=== PATIENT | female | born 1980 | race Caucasian/White ===

== ENCOUNTER 2016-04-10 19:13 | Emergency (ER) | payer BC ==
[~2016-04-10] VITALS: Ht 180.3 cm; Wt 72.3 kg
[~2016-04-10 19:13] MED LIST: ALEVE220 MG PO; BACTROBAN NASAL1 G1 BOTH NARES; CEFTIN500 MG PO; CHLORDIAZEPOXID25 MG PO; DAILY VITAMIN1 EAC8 PO; EFFEXOR75 MG PO; EXCEDRIN MIGRA1 EAC3 PO; FLUOXETINE HCL20 MG PO; FOLIC ACID1 MG PO; KEPPRA500 MG PO; LIBRIUM25 MG PO; THIAMINE HCL100 MG PO; VALACYCLOVIR1000 MG PO; VITAMIN B-1100 MG PO
[2016-04-10 20:17] LABS: HEMATOCRIT 38.5 % (36.0-46.0); MCHC 35.8 G/DL (30.0-36.0); MCV 89.3 FL (83-99); MEAN PLAT.VOLUME 9.6 uM^3 (9.5-12.4); PLATELET COUNT 204 K/uL (156-360); RBC DIS.WIDTH-CV 11.2 % (11.8-14.6); RBC DIS.WIDTH-SD 35.6 % (39-53); RED BLOOD COUNT 4.31 M/uL (3.80-5.20); WHITE BLOOD COUNT 9.8 K/uL (4.1-10.2)
[2016-04-10 20:24] LABS: CHLORIDE 100 mEq/L (99-109); POTASSIUM 3.4 mEq/L (3.7-5.4); SODIUM 136 mEq/L (136-147)
[2016-04-10 20:26] LABS: GLUCOSE 137 mg/dL (70-99)
[2016-04-10 20:27] LABS: ANION GAP 13 MEQ/L (2-14)
[2016-04-10 20:30] LABS: GFR ESTIMATE (CALCULATED) > 59 mL/min/; UREA NITROGEN (BUN) 12 mg/dL (9-23)
[2016-04-10] MEDS ORDERED: LIBRIUM25 MG PO (21:43)
[2016-04-10 22:09] VITALS: BP 148/106
== END 2016-04-10 22:10 | disposition home or self-care (01) ==
LOC: EME 19:13 → RME 19:13
DX: F10.239 Alcohol dependence with withdrawal, unspecified (principal); R56.9 Unspecified convulsions; F17.200 Nicotine dependence, unspecified, uncomplicated
CPT/HCPCS: 80048; 85027; 93005; 99281; 99284

== ENCOUNTER 2017-02-23 20:49 | Emergency (ER) | payer OTHER ==
[~2017-02-23] VITALS: Ht 180.3 cm; Wt 74.5 kg
[2017-02-23 21:13] LABS: HEMATOCRIT 45.7 % (36.0-46.0); HEMOGLOBIN 16.5 G/DL (11.9-15.5); MCH 32.9 PG (29.0-34.0); MCHC 36.1 G/DL (30.0-36.0); MCV 91.2 FL (83-99); PLATELET COUNT 264 K/uL (156-360); RBC DIS.WIDTH-CV 11.7 % (11.8-14.6); RED BLOOD COUNT 5.01 M/uL (3.80-5.20); WHITE BLOOD COUNT 26.6 K/uL (4.1-10.2)
[2017-02-23 21:21] LABS: ALBUMIN 3.4 g/dL (3.2-4.8); CHLORIDE 94 mEq/L (99-109); POTASSIUM 3.9 mEq/L (3.7-5.4); SODIUM 130 mEq/L (136-147)
[2017-02-23 21:23] LABS: GLUCOSE 180 mg/dL (70-99)
[2017-02-23 21:24] LABS: TOTAL PROTEIN 7.8 g/dL (6.4-8.3)
[2017-02-23 21:27] LABS: ALKALINE PHOSPHATASE 135 IU/L (3-129); CREATININE 0.9 mg/dL (0.6-1.3); GFR ESTIMATE (CALCULATED) > 59 mL/min/
[2017-02-23 21:28] LABS: UREA NITROGEN (BUN) 17 mg/dL (9-23)
[2017-02-23 21:29] LABS: AST (GOT) 273 IU/L (2-34)
[2017-02-23 21:30] LABS: ALT (GPT) 159 IU/L (3-49)
[2017-02-23 21:35] LABS: QUANTITATIVE HCG < 4.0 MIU/ML
[2017-02-23 22:24] LABS: APPEARANCE CLOUDY ((CLEAR)); BILIRUBIN SMALL; BLOOD NEGATIVE; GLUCOSE (STRIP) NEGATIVE; KETONES 5; LEUKOCYTES NEGATIVE; NITRITE NEGATIVE; PROTEIN (STRIP) 30; SPECIFIC GRAVITY 1.028 (1.000-1.030)
[2017-02-23 22:25] LABS: COLOR AMBER ((YELLOW))
[2017-02-23 22:30] LABS: LIPASE 874 U/L (1.0-51.0)
[2017-02-23 22:40] LABS: BACTERIA RARE /HPF; EPITHELIAL CELLS 4+ /HPF; HYALINE CASTS TNTC /LPF; MUCUS 4+ /LPF; RED BLOOD CELLS 0-5 /HPF (0-5); UCUL ADDED? NO; WHITE BLOOD CELLS 0-5 /HPF (0-5)
[2017-02-24] MEDS ORDERED: NORCO 5/3251 TABLET PO (00:28)
[2017-02-24] MEDS ORDERED: ATIVAN2 MG PO (00:28)
[2017-02-24 01:12] VITALS: BP 127/74
== END 2017-02-24 01:13 | disposition home or self-care (01) ==
LOC: EME 20:49
DX: K85.20 Alcohol induced acute pancreatitis without necrosis or infection (principal); R10.11 Right upper quadrant pain; E86.0 Dehydration; F10.239 Alcohol dependence with withdrawal, unspecified; Y90.9 Presence of alcohol in blood, level not specified; Z87.440 Personal history of urinary (tract) infections; F32.9 Major depressive disorder, single episode, unspecified; R56.9 Unspecified convulsions
CPT/HCPCS: 76705; 80053; 81003; 83690; 84702; 85027; 99281; 99285; J0780; J2060; J7040

== ENCOUNTER 2017-03-02 12:57 | Emergency (ER) | payer OTHER ==
[~2017-03-02] VITALS: Ht 177.8 cm; Wt 79.4 kg
[~2017-03-02 12:57] MED LIST changes: +ATIVAN2 MG PO; +NORCO 5/3251 TABLET PO
[2017-03-02 13:50] LABS: HEMATOCRIT 28.2 % (36.0-46.0); HEMOGLOBIN 9.5 G/DL (11.9-15.5); MCH 32.4 PG (29.0-34.0); MCHC 33.7 G/DL (30.0-36.0); MCV 96.2 FL (83-99); PLATELET COUNT 471 K/uL (156-360); RBC DIS.WIDTH-CV 11.9 % (11.8-14.6); RBC DIS.WIDTH-SD 42.1 % (39-53); RED BLOOD COUNT 2.93 M/uL (3.80-5.20); WHITE BLOOD COUNT 19.6 K/uL (4.1-10.2)
[2017-03-02 14:01] LABS: CHLORIDE 95 MEQ/L (99-109); POTASSIUM 3.8 MEQ/L (3.7-5.4); SODIUM 135 MEQ/L (136-147); TOTAL BILIRUBIN 0.8 MG/DL (0.0-1.0)
[2017-03-02 14:07] LABS: ALKALINE PHOSPHATASE 80 IU/L (3-129); ALT (GPT) 22 IU/L (3-49); AST (GOT) 26 IU/L (2-34); CREATININE 0.6 MG/DL (0.6-1.3); GFR ESTIMATE (CALCULATED) > 59 mL/min/; GLUCOSE 100 mg/dL (70-99); LIPASE 122 U/L (1.0-51.0); TOTAL PROTEIN 6.6 G/DL (6.4-8.3); UREA NITROGEN (BUN) 6 mg/dL (9-23)
[2017-03-02 14:11] LABS: QUANTITATIVE HCG < 4.0 MIU/ML
[2017-03-02 15:25] LABS: APPEARANCE SL.HAZY ((CLEAR)); BILIRUBIN NEGATIVE; BLOOD SMALL; COLOR YELLOW ((YELLOW)); GLUCOSE (STRIP) NEGATIVE; KETONES NEGATIVE; LEUKOCYTES NEGATIVE; NITRITE NEGATIVE; PROTEIN (STRIP) NEGATIVE; SPECIFIC GRAVITY 1.006 (1.000-1.030); UROBILINOGEN 0.2 MG/DL (0.2-1.0)
[2017-03-02] MEDS ORDERED: MULTIVITAMIN1 EAC2 PO (15:32)
[2017-03-02] MEDS ORDERED: ZOLOFT50 MG PO (15:32)
[2017-03-02] MEDS ORDERED: OMEPRAZOLE40 M1 PO (15:33)
[2017-03-02 15:53] LABS: BACTERIA RARE /HPF; CALCIUM OXALATE CRYSTALS 3+ /HPF; EPITHELIAL CELLS RARE /HPF; MUCUS TRACE /LPF; RED BLOOD CELLS 0-5 /HPF (0-5); UCUL ADDED? NO; WHITE BLOOD CELLS 0-5 /HPF (0-5)
[2017-03-02 16:19] LABS: CREATINE KINASE 20 IU/L (1-294); TOTAL CK 20 IU/L (1-294)
[2017-03-02 16:20] LABS: CK-MB < 0.4 ng/mL (0.0-4.9)
[2017-03-02 16:26] LABS: SERUM ETHYL ALCOHOL < 10 mg/dL
[2017-03-02] MEDS ORDERED: ZOFRAN ODT4 MG PO (16:32)
[2017-03-02 20:18] VITALS: BP 157/90
== END 2017-03-02 20:19 | disposition home or self-care (01) ==
LOC: EME 12:57
DX: K85.90 Acute pancreatitis without necrosis or infection, unspecified (principal); F10.10 Alcohol abuse, uncomplicated; Y90.0 Blood alcohol level of less than 20 mg/100 ml; F32.9 Major depressive disorder, single episode, unspecified; J90 Pleural effusion, not elsewhere classified; F17.200 Nicotine dependence, unspecified, uncomplicated; R56.9 Unspecified convulsions
CPT/HCPCS: 74177; 80053; 81003; 82550; 82553; 83690; 84702; 85027; 99281; 99284; G0480; J1885; J7030